=== PATIENT | male | born 1965 | race African-American/Black ===

== ENCOUNTER 2023-04-13 11:42 | Outpatient (REF) | payer MEDICAID, SELFPAY ==
[2023-04-13 13:17] LABS: MANUAL DIFF FLAG NO
[2023-04-13 13:40] LABS: Basophils Percent Auto 0.3 % (0-2); Eosinophils Absolute Auto 0.2 X10*3/uL (0.0-0.4); Eosinophils Percent Auto 3.1 % (0-4); Hematocrit 42.4 % (42.0-52.0); Hemoglobin 13.6 g/dl (14.0-18.0); Imm Gran Abs Auto 0.03 X10*3/uL (0.00-0.03); Imm Gran Pct Auto 0.4 % (0.0-0.4); Lymphocytes Absolute Auto 2.1 X10*3/uL (1.2-4.9); Lymphocytes Percent Auto 28.7 % (20-40); Mean Corpuscular HGB Conc 32.1 g/dl (31.0-36.0); Mean Corpuscular Hemoglobin 29.8 pg (27.0-33.0); Mean Platelet Volume 9.1 fL (9.4-12.4); Monocytes Absolute Auto 0.5 X10*3/uL (0.1-1.2); Monocytes Percent Auto 6.6 % (2-11); Neutrophils Absolute Auto 4.4 x10*3/uL (2.0-8.3); Neutrophils Percent Auto 60.9 % (45-73); Platelet Count 261 X10*3/uL (160-400); Red Blood Count 4.56 X10*6/uL (4.60-5.80); Red Cell Distribution Width 12.1 % (11.0-16.0); White Blood Count 7.2 X10*3/uL (4.8-10.8)
[2023-04-13 13:45] LABS: Estimated Average Glucose 117 mg/dL; Hemoglobin A1c % 5.7 % (<6.0)
[2023-04-13 14:02] LABS: Anion Gap 11 (12-20); Blood Urea Nitrogen 10 mg/dL (9-16); Calcium 9.2 mg/dL (8.4-10.2); Carbon Dioxide 27 mmol/L (22-29); Chloride 109 mmol/L (96-108); Cholesterol 159 mg/dL (<200); Estimated Glomerular Filt Rate > 60; Glucose Random 107 mg/dL (60-115); HDL Cholesterol 52 mg/dL (>40); LDL Cholesterol Calculated 87 mg/dL (<100); Potassium 4.1 mmol/L (3.3-5.1); Sodium 143 mmol/L (135-145); Triglycerides 102 mg/dL (<150)
[2023-04-14 08:09] LABS: HIV AB/AG Nonreactive (Nonreactive); HIV Num 1 0.08 S/CO (0.00-0.99); ~HepC Num1 0.11 S/CO (0.00-0.79); ~Hepatitis C Antibody Nonreactive (Nonreactive)
== END 2023-04-13 11:43 | disposition home or self-care (01) ==
LOC: HO.HHCL 11:42
PROVIDERS: Visit Provider Internal Medicine
DX: Z11.4 Encounter for screening for human immunodeficiency virus [HIV] (principal); E66.9 Obesity, unspecified
CPT/HCPCS: 36415; 80048; 80061; 83036; 85025; 86803; 87389

== ENCOUNTER 2024-07-24 10:01 | Outpatient (REF) | payer MEDICAID, SELFPAY ==
--- OUTSIDE RECORDS SUMMARY | 2024-07-24 11:29 | XMS_ITS | Continuity of Care Document ---
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 It does not include entries that were removed or entered in error. Problem Status Onset Date Problem Type Date of Resolution Comments Source Homeless single person Active Condition [facility]
--- OUTSIDE RECORDS SUMMARY | 2024-07-24 11:30 | XMS_ITS | Encounter Summary ---
Author Organization [employer] Address [address] [place] [address] [address] [place] [address] Care Team Providers Care Corporate Communications Specialist Name Role Phone Zarina Burns MD Primary Care Provide r Encounter Details Date Type Department Care Team (Latest Contact Info) Description 02/11/2019 Abstract [facility] CONVERSIONS Dental, Provider, DDS Social History Tobacco Use Types Packs/Day Years Used Date Smoking Tobacco: Never Assessed Sex and Gender Information Value Date Recorded Sex Assigned at Male 02/21/2022 10:35 AM EDT Legal Sex Male 10:35 AM EDT Gender Identity Male 02/21/2022 10:35 AM EDT Sexual Orientation Straight 02/21/2022 10 :35 AM EDT documented as of this encounter Plan of Treatment Not on file documented as of this encounter Visit Diagnoses Not on filedocumented in this encounter Care Teams Corporate Communications Specialist Relationship Specialty Start Date End Date Zarina Burns MD [address] [place] [phone] PCP - General Family Medicine 02/01/19 documented as of this encounter
--- OUTSIDE RECORDS SUMMARY | 2024-07-24 11:30 | XMS_ITS | Clinical Summary ---
Author Organization [employer] Address [address] [place] [address] 7 [place] [address] Care Team Providers Care Spike Machine Heater Name Role Phone Zarina Burns MD Primary Care Provide r Allergies Active Allergy Reactions Criticality Noted Date Comments Cat Dander Cough 05/25/2022 Lead Acetate 06/27/2023 Medications * This document contains information received from the source organization and may not represent a complete record from that organization. ProAir HFA 108 (90 Base) MCG/ACT inhalerIndicati ons:Mild intermittent asthma, unspecified whether complicated Inhale 2 puffs every 6 (six) hours if needed for wheezing or shortness of breath. 18 g 1 025 Active sildenafil (Viagra) 50 MG tabletIndicatio ns:Erectile dysfunction, unspecified erectile dysfunction type TAKE 1 TABLET 1 HOUR BEFORE SEXUAL RELATIONS ONCE DAILY NEEDED. 25 tablet 025 Active docusate sodium (Colace) 100 MG capsuleIndicati ons:Other constipation TAKE 1 CAPSULE BY MOUTH EVERY TWELVE HOURS NEEDED FOR CONSTIPATION 180 capsule 1 025 Active sertraline (Zoloft) 50 MG tabletIndicatio ns:Anxiety and depression Take 1 tablet (50 mg) by mouth Once per day. 30 tablet 3 025 Active docusate sodium (Colace) 100 MG capsuleIndicati ons:Other constipation TAKE 1 CAPSULE BY MOUTH EVERY TWELVE HOURS NEEDED FOR CONSTIPATION 180 capsule 1 024 2024 Discontinued(R eorder (will not trigger notification to Pharmacy)) sertraline (Zoloft) 50 MG tabletIndicatio ns:Anxiety and depression Take 1 tablet (50 mg) by mouth Once per day. 30 tablet 3 024 2024 Discontinued(R eorder (will not trigger notification to Pharmacy)) ProAir HFA 108 (90 Base) MCG/ACT inhalerIndicati ons:Mild intermittent asthma, unspecified whether complicated Inhale 2 puffs every 6 (six) hours if needed for wheezing or shortness of breath. 18 g 1 025 2024 Discontinued(R eorder (will not trigger notification to Pharmacy)) sildenafil (Viagra) 50 MG tabletIndicatio ns:Erectile dysfunction, unspecified erectile dysfunction type TAKE 1 TABLET 1 HOUR BEFORE SEXUAL RELATIONS ONCE DAILY NEEDED. 25 tablet 025 2024 Discontinued(R eorder (will not trigger notification to Pharmacy)) Active Problems Problem Noted Date Diagnosed Date Class 2 obesity due to exces s calories without serious comorbidity with body mass index (BMI) of 39.0 to 39.9 in adult 07/24/2024 Pityriasis rosea 2024 Mild major depression, single episode 2024 Mild intermittent asthma 2024 Assessment & Plan (2024 3:16 PM EDT): Stable c/w same interventions Homeless single person 2024 Constipation 2024 Assessment & Plan (05/06/2024 12:12 PM EST): C/w colace PRN Chronic midline low back pain without sciatica 0 06/27/2023 Assessment & Plan (06/27/2023 12:10 PM EST): Apply heat on affected area Acetaminophen PRN Health care maintenance 06/27/2023 Colon cancer screening 04/11/2023 Anxiety and depression 04/11/2023 Assessment & Plan (05/06/2024 12:12 PM EST): Stable c/w same interventions Assessment & Plan (2024 3:16 PM EDT): Counseling done, patient is stable C/w sertraline 50mg daily RTC 3 months Assessment & Plan (06/27/2023 12:09 PM EST): C/w sertraline he is doing 50mg daily Assessment & Plan (04/11/2023 11:46 AM EST): C/w sertraline every other day and wellbutrin 100mg BID Tinnitus of left ear 04/11/2023 Dental caries 07/27/2022 Elevated blood pressure reading 05/25/2022 Assessment & Plan (05/25/2022 12:16 PM EST): Most likely related to weight gain. Counseled re low salt diet/increase moderate physical activity. Check home BP BIW and prn CP/HARRELL/MCGREGOR Get labs and FU with me in 3-4 weeks. Obesity (BMI 30-39.9) 05/25/2022 Assessment & Plan (05/25/2022 12:17 PM EST): R/o organic condition. Most likely related to decreased physical activity, increased calorie intake, ? Sertraline. Order labs and FU with me in 3-4 weeks. Vitamin D deficiency 05/25/2022 Anxiety 05/25/2022 Assessment & Plan (05/25/2022 12:18 PM EST): Pt with recurrent depression and anxiety. I will refer him to N. Cut Sertraline down to off over the next two weeks and start Wellbutrin BID. FU with me in 3-4 weeks. Pt feels safe at home and is able to reach out for safety. Encounters Date Type Department Care Team Description 07/24/2024 9:15 AM EDT Office Visit [facility] [address] [place] [address] Zarina Burns MD Mild intermittent asthma, unspecified whether complicated (Primary Dx); Anxiety and depression; Class 2 obesity due to excess calories without serious comorbidity with body mass index (BMI) of 39.0 to 39.9 in adult; Erectile dysfunction, unspecified erectile dysfunction type; Other constipation 07/24/2024 Travel 07/23/2024 Telephone [facility] [address] [place] [address] Zarina Burns MD INSURANCE CALL 07/17/2024 Patient Outreach [facility] [address] [place] [address] Zarina Burns MD Pre-visit Planning (SDID unable to reach [facility] ) 07/05/2024 Population Health Risk Score [facility] ([facility]) Department [address] [place] [phone] Provider, Population Health Generic 05/06/2024 9:45 AM EST Office Visit [facility] [address] [place] [address] Zarina Burns MD Mild intermittent asthma, unspecified whether complicated (Primary Dx); Anxiety and depression; Constipation, unspecified constipation type; Erectile dysfunction, unspecified erectile dysfunction type 05/06/2024 Travel 05/02/2024 Refill [facility] [address] [place] [address] Zarina Burns MD Erectile dysfunction, unspecified erectile dysfunction type 04/26/2024 Patient Outreach [facility] [address] [place] [address] Zarina Burns MD Pre-visit Planning ([facility] screening completed on 06/27/2023) from Last 3 Months Immunizations Name Administration Dates Next Due INFLUENZA VACCINE QUADRIVALE NT RECOMBINANT PRESERVATIVE FREE RIV4 03/11/2020 Influenza injectable quadriv alent preservative free 01/27/2023,02/09/2022,03/23/2021 Influenza, seasonal, injecta ble, preservative free 01/25/2024 Pfizer Covid-19 Vaccine 12+ 01/25/2024, Pneumococcal Conjugate PCV 20 2024 Zoster, Recombinant 05/08/2024 Family History Medical History Relation Name Comments Polysubstance abuse Father Alcohol abuse Mother Hypertension Mother Relation Name Status Comments Father Mother Social History Tobacco Use Types Packs/Day Years Used Date Smoking Tobacco: Some Days Cigarettes Passive Smoke Exposure: Current Tobacco Cessation:Ready to Q uit: Not Asked; Counseling Given: Not Answered Alcohol Use Standard Drinks/Week Comments Yes 0 (1 standard drink = 0.6 oz pur e alcohol) Depression Answer Date Recorded Patient Health Questionnaire-9 Score 2 04/11/2023 Patient Health Questionnaire-9 Score 2 04/11/2023 Last PHQ-9: Questionnaire Data Not on file 1 06/12/2022 Housing Stability Answer Date Recorded What is your housing situation today? I have adrienne sanchez 07/24/[address] you li ve. Do you have problems with any of the following? None of the above 07/24/2024 Food Insecurity Answer Date Recorded Within the past 12 months, y ou worried that your food would run out before you got money to buy more: Never True 07/24/2024 Within the past 12 months,th e food you bought just didn't last and you didn't have enough money to get more: Never True 05/2024 Transportation Answer Date Recorded In the past 12 months, has l ack of transportation kept you from medical appts, meetings, work or from getting things needed for daily living? No 06/27/2023 Utilities Answer Date Recorded In the past 12 months, has t he electric, gas, oil or water company threatened to shut off services in your home? No 07/24/2024 Depression Answer Date Recorded Patient Health Questionnaire-2 Score 0 05/06/2024 Internet Access Answer Date Recorded Internet Access Q1 I am not sure 07/24/2024 Internet Access Q2 Not on file 07/24/2024 Sex and Gender Information Value Date Recorded Sex Assigned at Male 02/21/2022 10:35 AM EDT Legal Sex Male 10:35 AM EDT Gender Identity Male 02/21/2022 10:35 AM EDT Sexual Orientation Straight 02/21/2022 10 :35 AM EDT Last Filed Vital Signs Vital Sign Reading Time Taken Comments Blood Pressure 140/81 07/24/2024 9:15 AM EDT Pulse 65 07/24/2024 9:15 AM EDT Temperature 36.3 ??C (97.4 ??F) 05/06/2024 9:46 AM ES T Respiratory Rate 20 07/24/2024 9:15 AM EDT Oxygen Saturation 99% 07/24/2024 9:15 AM EDT Inhaled Oxygen Concentration - - Weight 114 kg (251 lb) 07/24/2024 9:15 AM EDT Height 170.2 cm (5' 7 ) 07/24/2024 9:15 AM EDT Body Mass Index 39.31 07/24/2024 9:15 AM EDT Plan of Treatment Health Maintenance Due Date Last Done Comments Anal Pap 1965 CT Colonography 1965 Colonoscopy 1965 Dental Oral Exam 1965 Dental Prophylaxis 1965 Dental X-Ray: Bitewings 1965 Dental X-Ray: Full Mouth 1965 FIT 1965 FOBT 1965 Sigmoidoscopy 1965 DTaP/Tdap/Td Vaccines (1 - Tdap) 02/14/1984 Hepatitis A Vaccines (1 of 2 - Risk 2-dose series) 02/14/1984 Hepatitis B Vaccines (1 of 3 - 19+ 3-dose series) 02/14/1984 SDOH Screening 06/26/2024 06/27/2023 Zoster Vaccines (2 of 2) 07/03/2024 05/08/2024 Depression Screening 05/06/2025 05/06/2024, 04/11/20 Alcohol/Substance Use Screening 07/24/2025 07/24/2024 Tobacco Screening 07/24/2025 07/24/2024 Colorectal Cancer Screening 05/02/2026 FIT DNA/Cologuard 05/02/2026 05/02/2023 Lipid Panel 04/13/2028 04/13/2023, 02/09/2022 RSV Patients and Patients Aged 60 years or older (1 - 1-dose 75+ series) 02/14/2040 HIV Screening Completed 04/13/2023 Hepatitis C Screening Completed 04/13/2023 COVID-19 Vaccine Completed 01/25/2024, 09/2022, 02/09/2022, Additional history exists Influenza Vaccine Completed 01/25/2024, , 02/09/2022, Additional history exists Pneumococcal Vaccine: 50+ Years Completed 2024 HIB Vaccines Aged Out No longer eligi ble based on patient's age to complete this topic HPV Vaccines Aged Out No longer eligi ble based on patient's age to complete this topic IPV Vaccines Aged Out No longer eligi ble based on patient's age to complete this topic Meningococcal Vaccine Aged Out No george glo eligible based on patient's age to complete this topic RSV under 20 months Aged Out No longe r eligible based on patient's age to complete this topic Rotavirus Vaccines Aged Out No longer eligible based on patient's age to complete this topic Procedures Procedure Name Priority Date/Time Associated Diagnosis Comments LAB COLOGUARD?? COLON CANCER SCREEN Routine 05/02/2023 8:00 AM EST Colon cancer screening HEPATITIS C AB W/REFL TO HCV RNA, QN, PCR Routine 04/13/2023 11:46 AM EST Obesity (BMI 30-39.9) HIV 1/2 ANTIGEN/ANTIBODY, FOURTH GENERATION W/RFL Routine 04/13/2023 11:46 AM EST Obesity (BMI 30-39.9) LIPID PANEL, STANDARD Routine 04/13/2023 11:46 AM EST Obesity (BMI 30-39.9) from Last 3 Months or Most Recently Relevant to Health Maintenance Results * Cologuard?? colon cancer screening (05/02/2023 8:00 AM EST) Cologuard Result Negative Negative 05/18/19 24 8:28 PM EST [facility] (CLIA #:[id number]) Comment: NEGATIVE TEST RESULT. A negative Cologuard result indicates a low likelihood that a colorectal cancer (CRC) or advanced adenoma (adenomatous polyps with more advanced pre-malignant features) ??is present. The chance that a person with a negative Cologuard test has a colorectal cancer is less than 1 in 1500 (negative predictive value >99.9%) or has an ??advanced adenoma is less than ??5.3% (negative predictive value 94.7%). These data are based on a prospective cross-sectional study of 10,000 individuals at average risk for colorectal cancer who were screened with both Cologuard and colonoscopy. (Ofelia Santos al, N Engl J Med 2014;370(14):1286- 1297) The normal value (reference range) for this assay is negative. COLOGUARD RE-SCREENING RECOMMENDATION: Periodic colorectal cancer screening is an important part of preventive healthcare for asymptomatic individuals at average risk for colorectal cancer. ??Following a negative Cologuard result, the [place] [employer] Society and U.S. Multi-Society Task Force screening guidelines recommend a Cologuard re-screening interval of 3 years. References: [place] [employer] Guideline for Colorectal Cancer Screening: https://www.cancer.org/cancer/qfyla-wcjslv-ohavtg/vexofxnhv-wvkkmmbnv-mdnsdim/ac s-rec ommendations.html.; Gulshan DK, Christopher CR, Elise SantanaK, Colorectal Cancer Screening: Recommendations for Physicians and Patients from the U.S. Multi-Society Task Force on Colorectal Cancer Screening , Am J Gastroenterology 2017; 112:9055-2364. TEST DESCRIPTION: Composite algorithmic analysis of stool DNA-biomarkers with hemoglobin immunoassay. ?? Quantitative values of individual biomarkers are not reportable and are not associated with individual biomarker result reference ranges. Cologuard is intended for colorectal cancer screening of adults of either sex, 45 years or older, who are at average-risk for colorectal cancer (CRC). Cologuard has been approved for use by the U.S. FDA. The performance of Cologuard was established in a cross sectional study of average-risk adults aged 50-84. Cologuard performance in patients ages 45 to 49 years was estimated by sub-group analysis of near-age groups. Colonoscopies performed for a positive result may find as the most clinically significant lesion: colorectal cancer [4.0%], advanced adenoma (including sessile serrated polyps greater than or equal to 1cm diameter) [20%] or non- advanced adenoma [31%]; or no colorectal neoplasia [45%]. These estimates are derived from a prospective cross-sectional screening study of 10,000 individuals at average risk for colorectal cancer who were screened with both Cologuard and colonoscopy. (Ofelia Santos al, N Engl J Med 2014;370(14):3579-7322.) Cologuard may produce a false negative or false positive result (no colorectal cancer or precancerous polyp present at colonoscopy follow up). A negative Cologuard test result does not guarantee the absence of CRC or advanced adenoma (pre-cancer). The current Cologuard screening interval is every 3 years. ([place] [employer] Society and U.S. Multi-Society Task Force). Cologuard performance data in a 10,000 patient pivotal study using colonoscopy as the reference method can be accessed at the following location: www.[employer].com/results. Additional description of the Cologuard test process, warnings and precautions can be found at www.cologuard.com. Stool specimen (specimen) 05/02/2023 8:00 AM EST 05/03/2023 2:32 PM EST us Zarina Mays MD LAB MOLECULAR DIAGNOS TICS ORDERABLES Final Result [facility] (CLIA #:[id number]) [place] [address], * Hepatitis C Antibody with Reflex to HCV, RNA, Quantitative, Real-Time PCR (04/13/2023 11:46 AM EST) Hepatitis C Antibody Nonreactive Nonreactive [facility] Comment:Antibodies to HCV no t detected; does not exclude early acuteHCV infection. Blood Venous blood specimen / Unknown 04/13/2023 11:46 AM EST 04/13/2023 1:12 PM EST Zarina Mays MD LAB BLOOD ORDERABLES Final Result [facility] [address] [place] [phone] [phone] * HIV-1/2 Antigen and Antibodies, Fourth Generation, with Reflexes (04/13/2023 11:46 AM EST) HIV AB/AG Nonreactive Nonreactive [facility] Comment:HIV-1 p24 Ag and/or HIV-1/HIV-2 Ab not detected.A test result that is nonreactive does not exclude thepossibility of exposure to or infection with HIV-1 and/orHIV-2. Nonreactive results in this assay for individualswith prior exposure to HIV-1 and/or HIV-2 may be due toantigen and antibody levels that are below the limit ofdetection of this assay.The [employer] HIV Ag/Ab Combo assay result andsupplemental assay results should be interpreted inconjunction with the patient's clinical presentation,history and other laboratory results. If the results areinconsistent with clinical evidence, additional testing issuggested to confirm the result. Blood Venous blood specimen / Unknown 04/13/2023 11:46 AM EST 04/13/2023 1:12 PM EST us Zarina Mays MD LAB BLOOD ORDERABLES Final Result [facility] [address] [place] [phone] * Lipid Panel, Standard (04/13/2023 11:46 AM EST) Triglycerides 102 <150 mg/dL [facility] Comment:Desirable Triglyceri de: less than 150 mg/dLBorderline High Triglyceride 150-199 mg/dLHigh Triglyceride: 200-499 mg/dLVery High Triglyceride: greater than or equal to 5OO mg/dL Cholesterol 159 <200 mg/dL [facility] Comment:Desirable Cholestero l: less than 200 mg/dLBorderline High Cholesterol: 200-239 mg/dLHigh Cholesterol: greater than 239 mg/dL LDL Cholesterol Calculated 87 <100 mg/dL [facility] Comment:Desirable LDL: less than 100 mg/dLNear Optimal/Above Optimal LDL: 110- 129 mg/dLBorderline High LDL: 130-159 mg/dLHigh LDL: 160-189 mg/dLVery High LDL: greater than or equal to 190 mg/dL HDL Cholesterol 52 >40 mg/dL [facility] Comment:Desirable HDL: great er than 40 mg/dL Note: This HDL assay may give artificially low results in patients with liver disease. Blood Venous blood specimen / Unknown 04/13/2023 11:46 AM EST 04/13/2023 1:12 PM EST Zarina Mays MD LAB BLOOD ORDERABLES Final Result [facility] [address] [place] [phone] from Last 3 Months or Most Recently Relevant to Health Maintenance Insurance [facility] C3 DENTAL-[facility] MEDICAID STAND ADULT Care Teams Spike Machine Heater Relationship Specialty Start Date End Date Zarina Burns MD [address] [place] [phone] PCP - General Family Medicine 02/01/19
--- OUTSIDE RECORDS SUMMARY | 2024-07-24 11:30 | XMS_ITS | Encounter Summary ---
Author Organization [employer] Address [address] [facility] [address] [place] [address] Care Team Providers Care Generation Engineering Technologist Name Role Phone Zarina Burns MD Primary Care Provide r Encounter Details Date Type Department Care Team (Latest Contact Info) Description 07/24/2024 Travel Social History Tobacco Use Types Packs/Day Years Used Date Smoking Tobacco: Some Days Cigarettes Passive Smoke Exposure: Current Alcohol Use Standard Drinks/Week Comments Yes 0 [...] Diagnoses Not on filedocumented in this encounter Additional Health Concerns Assessment Noted Time PHQ-9 Depression Total Score: 2 04/11/20 23 10:56 AM EST documented as of this encounter Care Teams Generation Engineering Technologist Relationship Specialty Start Date End Date Zarina Burns MD [address] [place] [address] PCP - General Family Medicine 02/01/19 documented as of this encounter
--- OUTSIDE RECORDS SUMMARY | 2024-07-24 11:30 | XMS_ITS | Encounter Summary ---
Author Organization [employer] Address [address] [facility] 7 [place] [address] Care Team Providers Care Wafer Substrate Tester Name Role Phone Zarina Burns MD Primary Care Provide r Reason for Visit * Reason Comments Chronic Conditions Encounter Details Date Type Department Care Team (Late st Contact Info) Description 07/24/2024 9:15 AM EDT Office Visit [facility] [address] [place], [place] [phone] Zarina Burns MD [address] [place], [place] [phone] Mild intermittent asthma, unspecified whether complicated (Primary Dx); Anxiety and depression; Class 2 obesity due to excess calories without serious comorbidity with body mass index (BMI) of 39.0 to 39.9 in adult; Erectile dysfunction, unspecified erectile dysfunction type; Other constipation Social History Tobacco Use Types Packs/Day Years [...] the past 12 months, has t he [employer], gas, oil or water company threatened to [...] AM EDT documented as of this encounter Last Filed Vital Signs Vital Sign Reading Time Taken Comments Blood Pressure 140/81 07/24/2024 9:15 AM EDT Pulse 65 07/24/2024 9:15 AM EDT Temperature - - Respiratory Rate 20 07/24/2024 9:15 AM EDT Oxygen Saturation 99% 07/24/2024 9:15 AM EDT Inhaled Oxygen Concentration - - Weight 114 kg (251 lb) 07/24/2024 9:15 AM EDT Height 170.2 cm (5' 7 ) 07/24/2024 9:15 AM EDT Body Mass Index 39.31 07/24/2024 9:15 AM EDT documented in this encounter Plan of Treatment Scheduled Orders Name Type Priority Associated Diagnoses Orde r Schedule CBC auto differential Lab Routine Class 2 obesity due to excess calories without serious comorbidity with body mass index (BMI) of 39.0 to 39.9 in adult Expected: 07/24/2024 (Approximate), Expires: 07/24/2025 Comprehensive Metabolic Panel Lab Routine Class 2 obesity due to excess calories without serious comorbidity with body mass index (BMI) of 39.0 to 39.9 in adult Expected: 07/24/2024 (Approximate), Expires: 07/24/2025 Hemoglobin A1c Lab Routine Class 2 obesity due to excess calories without serious comorbidity with body mass index (BMI) of 39.0 to 39.9 in adult Expected: 07/24/2024 (Approximate), Expires: 07/24/2025 HIV-1/2 Antigen and Antibodies, Fourth Generation, with Reflexes Lab Routine Class 2 obesity due to excess calories without serious comorbidity with body mass index (BMI) of 39.0 to 39.9 in adult Expected: 07/24/2024 (Approximate), Expires: 07/24/2025 Hepatitis C Antibody with Reflex to HCV, RNA, Quantitative, Real-Time PCR Lab Routine Class 2 obesity due to excess calories without serious comorbidity with body mass index (BMI) of 39.0 to 39.9 in adult Expected: 07/24/2024, Expires: 07/24/2025 Lipid Panel, Standard Lab Routine Class 2 obesity due to excess calories without serious comorbidity with body mass index (BMI) of 39.0 to 39.9 in adult Expected: 07/24/2024 (Approximate), Expires: 07/24/2025 Vitamin D, 25-Hydroxy, Total, Immunoassay Lab Routine Class 2 obesity due to excess calories without serious comorbidity with body mass index (BMI) of 39.0 to 39.9 in adult Expected: 07/24/2024 (Approximate), Expires: 07/24/2025 TSH with Reflex to Free T4 Lab Routine Class 2 obesity due to excess calories without serious comorbidity with body mass index (BMI) of 39.0 to 39.9 in adult Expected: 07/24/2024 (Approximate), Expires: 07/24/2025 documented as of this encounter Visit Diagnoses Diagnosis Mild intermittent asthma, unspecified whether complicated- Primary Anxiety and depression Class 2 obesity due to excess calories without serious comorbidity with body mass index (BMI) of 39.0 to 39.9 in adult Erectile dysfunction, unspecified erectile dysfunction type Other constipation documented in this encounter Additional Health Concerns Assessment Noted Time PHQ-9 Depression Total Score: 2 04/11/20 23 10:56 AM EST documented as of this encounter Care Teams Wafer Substrate Tester Relationship Specialty Start Date End Date Zarina Burns MD [address] [place] [address] [place] [address] PCP - General Family Medicine 02/01/19 documented as of this encounter
--- OUTSIDE RECORDS SUMMARY | 2024-07-24 11:30 | XMS_ITS | Encounter Summary ---
Author Organization [employer] Address [address] [place] [address] 7 [place] [address] Care Team Providers Care Bindery Worker Name Role Phone Zarina Burns MD Primary Care Provide r Reason for Visit * Reason Onset Date Comments INSURANCE CALL 07/23/2024 Encounter Details Date Type Department Care Team (Late st Contact Info) Description 07/23/2024 Telephone [facility] [address] [place], [place] [phone] Zarina Burns MD [address] [place], [place] [phone] INSURANCE CALL Social History Tobacco Use Types Packs/Day Years [...] AM EDT documented as of this encounter Miscellaneous Notes * Telephone Encounter - Bhavya Davies - 07/23/2024 9:40 AM EDT Called pt to let him know that his insurance is not active for appt tomorrow 07/24/24. PT states he will come in in the morning and fix it with insurance enrollment. documented in this encounter Plan of Treatment Not on file documented as of this encounter Visit Diagnoses Not on filedocumented in this encounter Additional Health Concerns Assessment Noted Time PHQ-9 Depression Total Score: 2 04/11/20 23 10:56 AM EST documented as of this encounter Care Teams Bindery Worker Relationship Specialty Start Date End Date Zarina Burns MD [address] [place] [address] PCP - General Family Medicine 02/01/19 documented as of this encounter
--- OUTSIDE RECORDS SUMMARY | 2024-07-24 11:30 | XMS_ITS | Encounter Summary ---
Author Organization [employer] Address [address] [place] [address] 7 [place] [address] Care Team Providers Care Plant Maintenance Engineer Name Role Phone Zarina Burns MD Primary Care Provide r Encounter Details Date Type Department Care Team (Latest Contact Info) Description 04/13/2021 [facility] Dental, Provider, DDS Social History Tobacco [...] on filedocumented in this encounter Care Teams Plant Maintenance Engineer Relationship Specialty Start Date End Date Zarina Burns MD [address] [place] [id number] PCP - General Family Medicine 02/01/19 documented as of this encounter
--- OUTSIDE RECORDS SUMMARY | 2024-07-24 11:30 | XMS_ITS | Encounter Summary ---
Author Organization [employer] Address [address] [facility] 7 [place] [address] Care Team Providers Care Pick And Shovel Man Name Role Phone Zarina Burns MD Primary Care Provide r Reason for Visit * Reason Comments Med Refill Encounter Details Date Type Department Care Team ([facility] st Contact Info) Description 01/09/2024 Refill [facility] [address] [place], [place] [phone] Zarina Burns MD [address] [place] [address] Erectile dysfunction, unspecified erectile dysfunction type Social History Tobacco Use Types Packs/Day Years [...] is your housing situation today? I have adrienneeduardo sanchez 04/11/[address] you li ve. Do you have problems with any of the following? None of the above 04/11/2023 Food Insecurity Answer Date Recorded Within the past 12 months, y ou worried that your food would run out before you got money to buy more: Never True 04/11/2023 Within the past 12 months,th e food you bought just didn't last and you didn't have enough money to get more: Never True Transportation Answer Date Recorded In the past 12 months, has l ack of transportation kept you from medical appts, meetings, work or from getting things needed for daily living? No 06/27/2023 Utilities Answer Date Recorded In the past 12 months, has t he electric, gas, oil or water company threatened to shut off services in your home? No 04/11/2023 Depression Answer Date Recorded Patient Health Questionnaire-2 Score 2 04/11/2023 Sex and Gender Information Value Date Recorded Sex Assigned at Male 02/21/2022 10:35 AM EDT Legal Sex Male 10:35 AM EDT Gender Identity Male 02/21/2022 10:35 AM EDT Sexual Orientation Straight 02/21/2022 10 :35 AM EDT documented as of this encounter Plan of Treatment Not on file documented as of this encounter Visit Diagnoses Diagnosis Erectile dysfunction, unspecified erectile dysfunction type documented in this encounter Additional Health Concerns Assessment Noted Time PHQ-9 Depression Total Score: 2 04/11/20 23 10:56 AM EST documented as of this encounter Care Teams Pick And Shovel Man Relationship Specialty Start Date End Date Zarina Burns MD [address] [place] [id number] PCP - General Family Medicine 02/01/19 documented as of this encounter
[2024-07-24 11:35] LABS: MANUAL DIFF FLAG NO
[2024-07-24 11:37] LABS: Basophils Percent Auto 0.4 % (0-2); Eosinophils Absolute Auto 0.2 X10*3/uL (0.0-0.4); Eosinophils Percent Auto 2.6 % (0-4); Hematocrit 44.5 % (42.0-52.0); Hemoglobin 14.5 g/dl (14.0-18.0); Imm Gran Abs Auto 0.02 X10*3/uL (0.00-0.03); Imm Gran Pct Auto 0.2 % (0.0-0.4); Lymphocytes Absolute Auto 2.7 X10*3/uL (1.2-4.9); Lymphocytes Percent Auto 31.5 % (20-40); Mean Corpuscular HGB Conc 32.6 g/dl (31.0-36.0); Mean Corpuscular Hemoglobin 29.8 pg (27.0-33.0); Mean Corpuscular Volume 91.6 fL (80.0-98.0); Mean Platelet Volume 9.2 fL (9.4-12.4); Monocytes Absolute Auto 0.7 X10*3/uL (0.1-1.2); Monocytes Percent Auto 8.5 % (2-11); Neutrophils Absolute Auto 4.8 x10*3/uL (2.0-8.3); Neutrophils Percent Auto 56.8 % (45-73); Platelet Count 228 X10*3/uL (160-400); Red Blood Count 4.86 X10*6/uL (4.60-5.80); Red Cell Distribution Width 11.9 % (11.0-16.0); White Blood Count 8.4 X10*3/uL (4.8-10.8)
[2024-07-24 11:44] LABS: Estimated Average Glucose 123 mg/dL; Hemoglobin A1C 158.0223 umol/L; Hemoglobin A1c % 5.9 % (<6.0); Total Hemoglobin (HGBA1C) 3872.8908 umol/L
[2024-07-24 12:13] LABS: HIV AB/AG Nonreactive (Nonreactive); HIV Num 1 0.09 S/CO (0.00-0.99); ~HepC Num1 0.13 S/CO (0.00-0.79); ~Hepatitis C Antibody Nonreactive (Nonreactive)
[2024-07-24 12:16] LABS: Alanine Aminotransferase 17 U/L (0-40); Albumin Level 4.6 g/dL (3.5-5.0); Alkaline Phosphatase 57 U/L (39-117); Anion Gap 9 (12-20); Aspartate Amino Transferase 24 U/L (5-37); Bilirubin Total 0.4 mg/dL (0.0-1.0); Blood Urea Nitrogen 12 mg/dL (9-16); Calcium 9.7 mg/dL (8.4-10.2); Carbon Dioxide 30 mmol/L (22-29); Chloride 105 mmol/L (96-108); Cholesterol 199 mg/dL (<200); Estimated Glomerular Filt Rate > 60; Glucose Random 96 mg/dL (60-115); HDL Cholesterol 57 mg/dL (>40); LDL Cholesterol Calculated 117 mg/dL (<100); Potassium 4.1 mmol/L (3.3-5.1); Sodium 140 mmol/L (135-145); TSH reflex Free T4 1.37 uIU/mL (0.32-4.0); Total Protein 7.8 g/dL (6.5-8.0); Triglycerides 129 mg/dL (<150); Vitamin D 25-OH Total 27.7 ng/mL (>30)
== END 2024-07-24 10:02 | disposition home or self-care (01) ==
LOC: HO.HHCL 10:01
PROVIDERS: Visit Provider Internal Medicine
DX: F41.9 Anxiety disorder, unspecified (principal); F32.A Depression, unspecified; E66.812 Obesity, class 2; E66.09 Other obesity due to excess calories; Z68.39 Body mass index [BMI] 39.0-39.9, adult
CPT/HCPCS: 36415; 80053; 80061; 82306; 83036; 84443; 85025; 86803; 87389

== ENCOUNTER 2024-11-19 12:50 | Outpatient (AMB) | payer MEDICAID, SELFPAY ==
--- OUTSIDE RECORDS SUMMARY | 2003-04-23 20:00 | XMS_ITS | Continuity of Care Document ---
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 It does not include entries that were removed or entered in error. Problem Status Onset Date Problem Type Date of Resolution Comments Source Homeless single person Active Condition [facility]
--- OUTSIDE RECORDS SUMMARY | 2024-11-15 23:59 | XMS_ITS | Continuity of Care Document ---
Author Organization [facility] Address [address] [place] [phone] Care Team Providers Care Volleyball Player Name Role Phone Tyler Mays MD, Zarina Gillespie Primary Care Physici an Encounter [facility] Date(s): 10/16/24 - 11/15/24 [facility] [address] [place] [phone]- Encounter Type: Triage Allergies, Adverse Reactions, Alerts No Known Medication Allergies Medications Albuterol (Eqv-ProAir HFA) 90 mcg/inh inhalation aerosol 1 inhalation = 90 mcg, Inhalation, Every 4 hours, PRN as needed for shortness of breath or wheezing, # 6.7 Gm, 0 Refills, Maintenance, 08/24/24 10:42:00 PM EDT, Aerosol, Partial fill upon patient request if the prescription is for a schedule II opioid drug. Start Date: 08/24/24 Status: Ordered Quantity: 6.7 Unit: g Repeat number: 1 aspirin 81 mg oral tablet, chewable 81 mg, By Mouth, Daily, # 90 tablet, Refills 0, Tot. Refills 0, Maintenance, 08/28/24 12:48:00 PM EDT, Route to Pharmacy Electronically, [facility], Partial fill upon patient request if the prescription is for a schedule II opioid drug., 170, cm, 08/27/24 5:54:00 EDT, Height, 116, kg, 08/25/24 11:35:00 EDT, Dry Weight Start Date: 08/28/24 Status: Ordered Quantity: 90.0 Unit: tablet Repeat number: 1 atorvastatin 80 mg oral tablet = 80 mg, By Mouth, Daily at bedtime, # 90 tablet, 0 Refills, Maintenance, 08/28/24 12:48:00 PM EDT, Tablet, [facility], Partial fill upon patient request if the prescription is for a schedule II opioid drug., 170, cm, 08/27/24 5:54:00 EDT, Height, 116, kg, 08/25/24 11:35:00 EDT, Dry Weight Start Date: 08/28/24 Status: Ordered Quantity: 90.0 Unit: tablet Repeat number: 1 carvedilol 3.125 mg oral tablet 3.125 mg, 1, tablet, By Mouth, 2 times a day, # 180 tablet, Refills 0, Tot. Refills 0, Maintenance,08/28/24 12:48:00 PM EDT, Route to Pharmacy Electronically, [facility], Partial fill upon patient request if the prescription is for a schedule II opioid drug., 170, cm, 08/27/24 5:54:00 EDT, Height, 116, kg, 08/25/24 11:35:00 EDT, Dry Weight Start Date: 08/28/24 Status: Ordered Quantity: 180.0 Unit: tablet Repeat number: 1 Viagra 50 mg oral tablet 1 tablet = 50 mg, By Mouth, Daily, PRN as needed for erectile dysfunction, # 5 tablet, 0 Refills, Maintenance, 08/24/24 10:14:00 PM EDT, Tablet, Partial fill upon patient request if the prescription isfor a schedule II opioid drug. Start Date: 08/24/24 Status: Ordered Quantity: 5.0 Unit: tablet Repeat number: 1 Problem List Condition Confirmation Course Effective Dates Status Health St atus Informant Severe obesity Confirmed Active Patient Care team information Care Team Personnel Name: Zarina Burns MD Position: [facility] Outreach Member Role: PCP Address: [address] [place] [address] [address] [place], [place] [address] Telecom: Name: Cammie Wong RN Position: [facility] RN Member Role: Primary Care Nurse Care Team Related Persons Name: AXEL FRANCIS Insurance Providers Guarantor name: RAMIREZ Health Plan Information #: 1 Payer: [employer] Payer Identifier: RAMIREZ Member Number: [id number] Group Number: [id number] Subscriber Identifier: [id number] Relationship to Subscriber: self Coverage Type: MEDICAID Coverage Verification Date: RAMIREZ Telecom: RAMIREZ Address:
--- NOTE | 2024-11-19 12:51 | MHC.OFFVIS ---
Intake Visit Reasons: Micro Hematuria Intake Note: Patient is present for MICRO HEMATURIA Urology Medication:SILDENAFIL Antibiotic Allergy:NONE Blood Thinner:ASPIRIN [place] Required: No Allergies No Known Allergies (No Known Allergies*) Allergy (Verified 11/19/24 13:16) Medication List - Last Reconciled 11/19/24 by LENO Huynh acetaminophen ER 650 mg PO Q8H amoxicillin 500 mg PO Q8H docusate sodium 100 mg PO Q12H PRN sildenafil (Viagra) 50 mg PO DAILY PRN HPI Comments Details: Brown is a pleasant 59-year-old male patient of Dr. Escobar. He has a past medical history of cocaine abuse, insomnia, acute coronary syndrome, obesity, constipation, depression, chronic back pain, anxiety, vitamin-D deficiency, and hypertension. He presents to the office today as a new patient for microscopic hematuria. In discussion with the patient today he reports having followed up with his PCP as he has recently experienced a myocardial infarction at which time his urine was noted to have microscopic hematuria and recommendations were made for urology referral for further assessment evaluation. When asked he does report a previous history of nicotine dependence when in the . He reports smoking cigarettes for approximately 5 years a pack per day. He does however report a history of cocaine abuse as well as recreational marijuana. He reports typically smoking recreational marijuana on the weekends. He reports smoking anywhere between 1-2 pre rolls a day on the weekend. In office urinalysis results reviewed with the patient today 2+ microscopic hematuria otherwise within normal limits. He denies any episodes of gross/visible hematuria. He denies any bothersome urinary issues. He denies urinary urgency, urinary frequency, incontinence, nocturia, dysuria, foul smelling urine, changes to urinary stream, flank pain, fever, and or chills. He is happy with his current voiding parameters. We did discuss potential causes of hematuria. I discussed reasons for blood in the urine may include but are not limited to kidney stones, cancer in the urinary tract, BPH, kidney stone disease or inflammatory conditions of the urinary tract. I have discussed workup to include cystoscopy evaluation. [facility] Medical History (Updated 11/19/24 @ 13:15 by LENO Huynh) Cocaine abuse Primary insomnia Acute coronary syndrome Microhematuria Class 2 obesity due to excess calories without serious comorbidity with body mass index (BMI) of 39.0 to 39.9 in adult Constipation Mild major depression, single episode Pityriasis rosea Chronic midline low back pain without sciatica Tinnitus of left ear Anxiety and depression Colon cancer screening Dental caries Anxiety Vitamin D deficiency Obesity (BMI 30-39.9) Elevated blood pressure reading Review of Systems Const All systems reviewed & are unremarkable except as noted in HPI and below Physical Exam Const General: cooperative, comfortable, no acute distress, well developed, alert and awake Nutritional Appearance: overweight Orientation/consciousness: patient oriented x3 Limitations: no limitations HEENT Head: Yes normal to inspection, Yes normocephalic and Yes atraumatic Ears: hearing grossly normal bilaterally Eyes General: appearance normal, both eyes and all related structures Neck Neck: Yes normal visual inspection and Yes trachea midline Chest Chest palpation & inspection: normal inspection of the chest Resp Effort & Inspection: normal respiratory effort and able to speak in complete sentences Cardio Rate: regular rate GI Inspection: Yes normal to inspection General: Yes no CVA tenderness Back/Spine/Pelvis Back: no CVA tenderness Skin General skin exam: no rashes or lesions noted Neuro General: patient oriented x3 Extrem General: Yes normal to inspection Psych Appearance: grossly normal and well kempt Mental Status: mental status grossly normal Speech and movement: Normal speech and movement present and Clear speech present Affect: normal affect Attitude: cooperative Thought process: Normal thought process present Thought content: Normal thought content present Insight: Fair insight present (Psych) Judgement: Fair judgement present (Psych) Results AMB Urinalysis, Automated UA Leukoctes 0 Yuliya/uL Last Edit by DARSHANA Hastings on 11/19/24 13:09 UA Nitrite Negative Last Edit by DARSHANA Hastings on 11/19/24 13:09 UA Urobilinogen 0.2 mg/dL Last Edit by DARSHANA Hastings on 11/19/24 13:09 UA Protein 15 mg/dL Last Edit by DARSHANA Hastings on 11/19/24 13:09 UA pH 6.0 Last Edit by DARSHANA Hastings on 11/19/24 13:09 UA Blood 80 Kody/uL Last Edit by DARSHANA Hastings on 11/19/24 13:09 UA Specific [place] 1.030 Last Edit by DARSHANA Hastings on 11/19/24 13:09 UA Ketone Negative Last Edit by DARSHANA Hastings on 11/19/24 13:09 UA Bilirubin 0 mg/dL Last Edit by DARSHANA Hastings on 11/19/24 13:09 UA Glucose 0 mg/dL Last Edit by DARSHANA Hastings on 11/19/24 13:09 Results Reviewed Results Reviewed: Laboratory Last Values Urine pH (Auto) 6.0 11/19/24 13:09 Specific [place] (Auto) 1.030 11/19/24 13:09 Urine Protein (Auto) 15 mg/dL 11/19/24 13:09 Glucose (UA)(Auto) 0 mg/dL 11/19/24 13:09 Urine Ketones (Auto) Negative 11/19/24 13:09 Urine Blood (Auto) 80 Kody/uL 11/19/24 13:09 Urine Nitrite (Auto) Negative 11/19/24 13:09 Urine Bilirubin (Auto) 0 mg/dL 11/19/24 13:09 Urine Urobilinogen (Auto) 0.2 mg/dL 11/19/24 13:09 Leukocyte Esterase (Auto) 0 Yuliya/uL 11/19/24 13:09 Assessment & Plan Assessment & Plan (1) Marijuana dependence: Code(s): F12.20 - Cannabis dependence, uncomplicated Category: Medical (2) Microhematuria: Code(s): R31.29 - Other microscopic hematuria Category: Medical (3) History of nicotine dependence: Code(s): Z87.891 - Personal history of nicotine dependence Category: Medical Plan In office urinalysis results reviewed the patient today; as noted above. Will send for urine cytology. We discussed potential causes of microscopic hematuria as well as further workup to include imaging and cystoscopy; risks and benefits of these interventions were discussed. He currently denies any bothersome urinary issues or concerns. He reports be happy with current voiding parameters. Will obtain CT urogram for further assessment evaluation. BUN and creatinine ordered for imaging. We discussed the importance of limiting/quitting recreational marijuana as well as recreational drug use. Follow-up in 1-3 months with labs and imaging; or sooner with any issues, concerns, and or questions. Orders: Orders AMB Urinalysis Automated Today Z13.9 - Encounter for screening, unspecified Urine Cytology Today F12.20 - Cannabis dependence, uncomplicated, Z87.891 - Personal history of nicotine dependence CT urogram Today R31.0 - Gross hematuria Blood Urea Nitrogen Today R39.15 - Urgency of urination Creatinine Today R39.15 - Urgency of urination Patient Instructions: The patient had an opportunity to ask questions regarding the treatment plan. All questions were answered. Physical exam, labs, and imaging were discussed and reviewed in detail. As well as risks, benefits, and discussion of treatment choices. No major barriers to understanding were identified. The patient expressed understanding and agreement with the above treatment plan. The patient was made aware they should contact our office by phone for worsening of their current condition, the appearance of new symptoms, or with any questions or concerns. Compliance is encouraged with any medications and follow up testing that is ordered. It is a privilege to be allowed the opportunity to participate in? your urological care.? Again, if you have any questions or concerns If you have any questions or concerns please do not hesitate to contact me. The office is [phone]. This note is constructed using voice recognition software. While every effort has been made to ensure accuracy drill sergeant errors may have been included. Yours sincerely, LENO Huynh Coding Level of Care Code New Pt Level 3 (94433) Diagnoses Marijuana dependence F12.20 Microhematuria R31.29 History of nicotine dependence Z87.891
--- OUTSIDE RECORDS SUMMARY | 2024-11-19 13:37 | XMS_ITS | Encounter Summary ---
Author Organization [employer] [facility] Address [address] [facility] 7t [place] [address] Care Team Providers Care First Aid Nurse Name Role Phone Zarina Burns MD Primary [...] on filedocumented in this encounter Care Teams First Aid Nurse Relationship Specialty Start Date End Date Zarina Burns MD [address] [place] [id number] PCP - General Family Medicine 02/01/19 documented as of this encounter
== END 2024-11-19 13:20 | disposition home or self-care (01) ==
LOC: HO.HUSH 12:50
PROVIDERS: PCP Internal Medicine; Visit Provider Nurse Practitioner Family
DX: F12.20 Cannabis dependence, uncomplicated (principal); R31.29 Other microscopic hematuria; Z87.891 Personal history of nicotine dependence; Z13.9 Encounter for screening, unspecified
CPT/HCPCS: 99203

== ENCOUNTER 2024-11-19 12:50 | Outpatient (REF) | payer MEDICAID, SELFPAY | END 2024-11-19 12:51 | disposition home or self-care (01) | LOC: HO.LAB 12:50 | PROVIDERS: PCP Internal Medicine; Visit Provider Nurse Practitioner Family | DX: R31.29 Other microscopic hematuria (principal); R31.0 Gross hematuria; R39.15 Urgency of urination; F12.20 Cannabis dependence, uncomplicated; Z13.89 Encounter for screening for other disorder; Z87.891 Personal history of nicotine dependence | CPT/HCPCS: 81003; 88112; 99212 ==